=== PATIENT | male | born 1980 | race Caucasian/White ===

== ENCOUNTER 2020-07-31 19:36 | Emergency (ER) | payer SELFPAY ==
[2020-07-31 20:41] VITALS: BP 142/85; PULSE 112
--- NOTE | 2020-07-31 21:04 | EDM.PDOC ---
ED HPI GENERAL MEDICAL PROBLEM - General Chief Complaint: General Stated Complaint: TOOTH PAIN Time Seen by Provider: 07/31/20 20:56 Source of Information: Reports: Patient, Family, RN Notes Reviewed History Limitations: Reports: No Limitations - History of Present Illness INITIAL COMMENTS - FREE TEXT/NARRATIVE: 39-year-old gentleman presents emergency department a complaint of dental pain he states he has had dental pain for some time but over the last 24 hours they have gotten progressively worse he now has a headache tenderness on that side of his face he has not followed up with dentistry no fevers Right Upper Tooth/Teeth Pain Score (Numeric/FACES): 8 - Related Data Allergies Allergy/AdvReac Type Severity Reaction Status Date / Time No Known Allergies Allergy Verified 07/31/20 20:29 Home Meds: Home Meds NK [No Known Home Meds] 07/31/20 [History] Past Medical History Musculoskeletal History: Reports: Other (See Below) Other Musculoskeletal History: "T11 & L2 problems" - Infectious Disease History Infectious Disease History: Reports: Chicken Pox, Novel Coronavirus - Past Surgical History HEENT Surgical History: Reports: Oral Surgery Social & Family History - Tobacco Use Tobacco Use Status *Q: Current Every Day Tobacco User Years of Tobacco use: 26 Packs/Tins Daily: 1 - Recreational Drug Use Recreational Drug Use: No ED ROS GENERAL - Review of Systems Review Of Systems: See Below Constitutional: Reports: No Symptoms HEENT: Reports: Dental Pain Respiratory: Reports: No Symptoms Cardiovascular: Reports: No Symptoms ED EXAM, GENERAL - Physical Exam Exam: See Below Free Text/Narrative:: Mucosa is moist and pink dentition is poor tooth #1 is fractured and tender Exam Limited By: No Limitations General Appearance: Alert, WD/WN, No Apparent Distress Respiratory/Chest: No Respiratory Distress Course - Vital Signs Last Recorded V/S: Last Vital Signs Temp 99.7 F 07/31/20 20:41 Pulse 112 H 07/31/20 20:41 Resp 16 07/31/20 20:41 BP 142/85 H 07/31/20 20:41 Pulse Ox 97 07/31/20 20:41 Departure - Departure Time of Disposition: 21:03 Disposition: Home, Self-Care 01 Condition: Fair Clinical Impression: Dental abscess - Discharge Information Instructions: Dental Abscess Referrals: PCP,None [Primary Care Provider] - Additional Instructions: Take full course of antibiotics use ibuprofen for baseline pain control use hydrocodone for breakthrough pain please report to the dental clinic tomorrow morning 815 Sepsis Event Note (ED) - Evaluation Sepsis Screening Result: Possible Sepsis Risk - Focused Exam Vital Signs: Vital Signs Temp Pulse Resp BP Pulse Ox 07/31/20 20:41 99.7 F 112 H 16 142/85 H 97 07/31/20 20:40 99.7 F 112 H 16 142/85 H 97 - Assessment/Plan Plan: Assessment Acuity = acute Site and laterality = dental abscess tooth #1 Etiology = dental caries Manifestations = none Location of injury = Home Lab values = none Plan Started amoxicillin 500 mg p.o. 3 times daily x7 days also hydrocodone 5/325 1 tab p.o. 3 times daily as needed total #6 referral set up with community dentist for tomorrow This note was dictated using [employer] voice recognition software please call with any questions on syntax or grammar.
== END 2020-07-31 21:15 | disposition home or self-care (01) ==
LOC: JP.ED 19:36
DX: K04.7 Periapical abscess without sinus (principal); Z72.0 Tobacco use
CPT/HCPCS: 99282; 99283

== ENCOUNTER 2021-08-31 19:13 | Emergency (ER) | payer OTHER, MEDICAID ==
[2021-08-31] MEDS ORDERED: Lidocaine 1% 5 ML VIAL INJECT ONE ×2 (19:17→19:59)
[2021-08-31] MEDS ORDERED: Diphtheria,Pertussis(Acell),Tetanus Vaccine 0.5 ML Syringe IM ONE (19:17)
[2021-08-31] MEDS ORDERED: cefTRIAXone 2 GM, Lidocaine 1% 4.2 ML IM ONE ×2 (19:19)
[2021-08-31 19:32] VITALS: BP 168/96; PULSE 125
[2021-08-31] MEDS ORDERED: Bacitracin Oint 1 GM U/D Packet TOP ONE (19:46)
[2021-08-31] MEDS ORDERED: Lidocaine 1% 5 ML VIAL ONE (20:01)
== END 2021-08-31 20:36 ==
LOC: JP.ED 19:13
DX: S81.851A Open bite, right lower leg, initial encounter (principal); Z72.0 Tobacco use; Z86.16 Personal history of COVID-19; Z23 Encounter for immunization; W54.0XXA Bitten by dog, initial encounter
CPT/HCPCS: 12002; 90471; 90715; 96372; 99283; 99284; J0696